=== PATIENT | female | born 1990 | race Caucasian/White ===

== ENCOUNTER 2017-12-29 11:56 | Emergency (ER) | payer SELFPAY ==
[~2017-12-29] VITALS: Ht 170.2 cm; Wt 63.5 kg
[2017-12-29 11:56] VITALS: BP_SYST 140
[2017-12-29] MEDS ORDERED: DIPHENHYDRAMINE HCL 25 MG CAPSULE PO ONE (12:30)
[2017-12-29] MEDS ORDERED: PREDNISONE 20 MG TABLET PO ONE (12:30)
[2017-12-29 12:40] VITALS: BP_SYST 125
== END 2017-12-29 12:40 | disposition home or self-care (01) ==
LOC: SED 11:56
DX: R21 Rash and other nonspecific skin eruption (principal)
CPT/HCPCS: 99283; J7512; Q0163